=== PATIENT | female | born 1980 | race Caucasian/White ===

== ENCOUNTER 2022-05-18 12:06 | Emergency (ER) | payer SELFPAY ==
[2022-05-18] MEDS ORDERED: Cephalexin 500 MG CAP ONE (12:31)
[2022-05-18] MEDS ORDERED: Sulfameth/Trimethoprim DS 800-160mg TAB ONE (12:31)
[2022-05-18] MEDS ORDERED: Acetaminophen 500 MG TAB ONE (12:36)
== END 2022-05-18 13:00 | disposition home or self-care (01) ==
LOC: MADERS 12:06
DX: S09.90XA Unspecified injury of head, initial encounter (principal); L03.811 Cellulitis of head [any part, except face]; R29.700 NIHSS score 0; F17.200 Nicotine dependence, unspecified, uncomplicated; Y04.2XXA Assault by strike against or bumped into by another person, initial encounter; Z85.038 Personal history of other malignant neoplasm of large intestine
CPT/HCPCS: 99283